=== PATIENT | male | born 2005 | race African-American/Black ===

== ENCOUNTER 2024-09-04 10:52 | Emergency (ER) | payer SELFPAY ==
[~2024-09-04] VITALS: Ht 177.8 cm; Wt 73.0 kg
[2024-09-04 10:58] VITALS: BP 130/80; PULSE 86; RESP 16; TEMP 36.9; O2SAT 99
== END 2024-09-04 11:40 | disposition left against medical advice (07) ==
LOC: ER 10:52
DX: M79.605 Pain in left leg (principal); M79.604 Pain in right leg; Z53.21 Procedure and treatment not carried out due to patient leaving prior to being seen by health care provider
CPT/HCPCS: A4606